=== PATIENT | male | born 1955 | race Caucasian/White ===

== ENCOUNTER 2023-09-02 05:55 | Day surgery (SDC) | payer MEDICARE, BC ==
[2023-08-31 11:51] VITALS: BP 129/87
[~2023-09-02] VITALS: Ht 188 cm; Wt 120.0 kg
[~2023-09-02 05:55] MED LIST: ASPIRIN325 MG PO; FLONASE ALLERG9.9 ML NAS; LACTATED RINGER'S 1,000 ML IV SCH; MELOXICAM15 MG PO; MULTI VITAMIN1 EACH PO; PRILOSEC OTC20 MG PO; ZESTORETIC 10-1 EACH PO
[2023-09-02 06:13] VITALS: BP 117/68
[2023-09-02] MEDS ORDERED: iopamidoL 30 ML VIAL ONE (06:54)
[2023-09-02] MEDS ORDERED: SODIUM CHLORIDE 0.9% 40 ML IV ONE ×2 (06:55→07:21)
[2023-09-02] MEDS ORDERED: HEParin SOD (PORCINE) 5,000 UNIT/0.5 ML SYR SUB-Q SCH (07:00)
[2023-09-02] MEDS ORDERED: CEFAZOLIN SODIUM 2 GM/20 ML SYR IV SCH (07:00)
[2023-09-02] MEDS ORDERED: LIDOCAINE HCL 1% 5 ML SDV INJ ONE (07:00)
[2023-09-02] MEDS ORDERED: IBLOOD GLUCOSE TEST STRIP 1 EA TEST VI PRN ×2 (07:00→07:30)
[2023-09-02] MEDS ORDERED: LIDOCAINE HCL 2% 5 ML SDV ONE ×2 (07:21→09:07)
[2023-09-02] MEDS ORDERED: ondansetron HCL 4 MG/2 ML VIAL ONE (07:21)
[2023-09-02] MEDS ORDERED: propofoL 200 MG/20 ML VIAL ONE (07:21)
[2023-09-02] MEDS ORDERED: dexmedeTOMIDine HCl 200 MCG/2 ML VIAL ONE (07:21)
[2023-09-02] MEDS ORDERED: MAGNESIUM SULFATE 1 GM/2 ML VIAL ONE ×2 (07:21→09:18)
[2023-09-02] MEDS ORDERED: fentaNYL citrate 100 MCG/2 ML VIAL ONE (07:21)
[2023-09-02] MEDS ORDERED: ACETAMINOPHEN 1,000 MG/100 ML VIAL ONE (07:21)
[2023-09-02] MEDS ORDERED: DEXAMETHASONE SOD PHOS 4 MG/ML VIAL ONE (07:21)
[2023-09-02] MEDS ORDERED: KETAMINE in NS 50 MG/5 ML SYR ONE (07:21)
[2023-09-02] MEDS ORDERED: ROCURONIUM BROMIDE 50 MG/5 ML SYR ONE ×2 (07:21→08:25)
[2023-09-02] MEDS ORDERED: ondansetron HCL 4 MG/2 ML VIAL IV PRN (07:30)
[2023-09-02] MEDS ORDERED: NALOXONE HCL 0.4 MG SYR IV PRN (07:30)
[2023-09-02] MEDS ORDERED: SEVOFLURANE 250 ML BTL ONE (07:30)
[2023-09-02] MEDS ORDERED: HYDROmorphone HCL 1 MG/ML SYR IV PRN (07:30)
[2023-09-02] MEDS ORDERED: fentaNYL citrate 100 MCG/2 ML VIAL IV PRN (07:30)
[2023-09-02] MEDS ORDERED: ePHEDrine sulfate 50 MG/ML AMP ONE (09:05)
[2023-09-02] MEDS ORDERED: SODIUM CHLORIDE 0.9% 20 ML IV ONE (09:07)
[2023-09-02] MEDS ORDERED: SUGAMMADEX SODIUM 200 MG/2 ML ML ONE (09:32)
[2023-09-02] MEDS ORDERED: IBUPROFEN600 MG PO (11:05)
[2023-09-02] MEDS ORDERED: OXYCODON-ACETA1 EAC2 PO (11:06)
[2023-09-02] MEDS ORDERED: ACETAMINOPHEN500 MG PO (11:06)
[2023-09-02] MEDS ORDERED: AUGMENTIN 500-1 EACH PO (11:07)
[2023-09-02] MEDS ORDERED: IBUPROFEN 600 MG TAB PO PRN (11:15)
[2023-09-02] MEDS ORDERED: ACETAMINOPHEN 500 MG TAB PO PRN (11:15)
[2023-09-02] MEDS ORDERED: LACTATED RINGER'S 1,000 ML IV SCH (11:15)
[2023-09-02] MEDS ORDERED: OXYCODONE/APAP 7.5/325 TAB PO PRN (11:15)
[2023-09-02] MEDS ORDERED: KETOROLAC TROMETHAMINE 30 MG/ML VIAL IV ONE (11:15)
[2023-09-02] MEDS ORDERED: KETOROLAC TROMETHAMINE 30 MG/ML VIAL ONE (11:16)
[2023-09-02 11:40] VITALS: BP 123/64
--- NOTE | 2023-09-02 11:49 | NUR ---
1140- PT ARRIVES BACK TO DAY SURGERY, DROWSY. PT REPORTS HAVING "TOLERABLE PAIN" RATES IT A 4/10, DENIES NAUSEA. RESP EVEN AND UNLABORED. OXYGEN SAT LOW 90'S ON RA. PT'S CPAP BROUGHT BACK INTO THE ROOM. PT HAS NOT HAD TO USE THE CPAP IN PACU. PT PROVIDED WATER, CRACKERS, AND APPLE SAUCE PER HIS REQUEST. PT'S FAMILY AT THE BEDSIDE. BED IN THE LOWEST POSITION, BED RAIL UP X1, CALL LIGHT PROVIDED.
[2023-09-02] MEDS ORDERED: AMOXICILLIN/CLAVULANATE K 500 MG TAB PO SCH (12:00)
[2023-09-02 12:29] VITALS: BP 134/66
--- NOTE | 2023-09-02 12:40 | NUR ---
1230 PT REQUESTED PAIN MEDICATION FOR 4/10 PAIN. 1235 VITALS TAKEN, PT GIVEN PAIN MEDICATION, SEE EMAR. PT HAS SNACKS AND WATER AT BEDSIDE. PT TOLERATING PO SNACKS AND WATER WELL, NO NAUSEA. PT AT BEDSIDE.
[2023-09-02 13:35] VITALS: BP 117/64
--- NOTE | 2023-09-02 13:40 | NUR ---
1330 PT REPORTED 6/10 PAIN IN RIGHT SHOULDER. PROVIDED PT HEATING PAD FOR SHOULDER AND INSTRUCTED THAT MASSAGE AND MOVING ARM MAY HELP. 1335 VITALS TAKEN, PT HAS SNACKS AND WATER AT BEDSIDE. PT AT BEDSIDE. NO FURTHER REQUESTS AT THIS TIME.
[2023-09-02 14:20] VITALS: BP 130/64
--- NOTE | 2023-09-02 15:06 | NUR ---
1410 PT WAS ABLE TO AMBULATE TO THE BATHROOM. VOIDED 200 MLS. PT HAD SOME DRAINAGE SEROSANGIOUS FROM THOM DRAIN SITE UPON AMBULATION. 1420 VITALS TAKEN. PAIN REASSESSED AFTER PAIN MEDICATION AND HEATING PAD APPLIED. PAIN REDUCED TO 4/10 TOLERABLE LEVEL OF PAIN. 1425 DISCHARGE INFORMATION GONE OVER. PRESCRIPTION GIVEN TO PT. THOM DRAIN EDUCATION GIVEN, AND DEMONSTRATION OF STRIPPING THOM LINE AND EMPTYING. STERI STRIPS REINFORCED TO UMBILICUS LAP SITE. TEACHING DONE WITH AT BEDSIDE. 1450 IV DISCONTINUED. 1455 PT DISCHARGED FROM DAY SURGERY VIA WHEELCHAIR TO FRONT OF [facility] INTO 'S CAR.
--- NOTE | 2023-09-02 15:50 | NUR ---
09/02/23 1550 AndrewJyotiChristi Wojciech 1044- PT ARRIVES TO PACU, SEMI TO HIGH DE GUZMAN POSITION. NON REACTIVE TO STIMULUS AT THIS TIME. BREATHING EVEN AND NON LABORED, O2 AT 8L PER MASK. LR INFUSING TO LFA IV. ALL MONITORS IN PLACE. STERI STRIPS TO 3 LAP SITES, GAUZE AND TAPE TO THOM DRAIN SITE. ABD SOFT, NON DISTENDED. 1050- PT REACTIVE TO VERBAL STIMULI. OPENS EYES AND LOOKING AROUND. REORIENTED TO TIME AND PLACE. PT DOESN'T ANSWER QUESTIONS AT THIS TIME. FALLS ASLEEP INTERMITTENTLY. 1059- PT REPORTS 2/10 PAIN AT THIS TIME, TOLERABLE. MOVED TO ROOM AIR, WILL CONTINUE TO MONITOR. PT IS COUGHING UP AND CLEARING SMALL AMOUNTS OF PHLEGM FROM THROAT. EDUCATED ON SPLINTING ABD WITH PILLOW. 1105- PT REPORTING PAIN IS STARTING TO INCREASE, BUT IT IS TOLERABLE. DR TORRES AT BEDSIDE, ORDERS FOR TORADOL RECEIVED. 1124- REASSESSED DRESSINGS AND NOTED RLQ DRESSING AT THE THOM DRAIN SITE TO BE SATURATED. NOTIFIED DR TORRES, ORDERS TO CHANGE DRESSING. THOM DRAIN IS COMPRESSED, STRIPPED THE LINE, AND PLACED NEW GAUZE AND TAPE TO SITE. 1140- PT RESTING INTERMITTENTLY. WAKES EASILY TO VERBAL STIMULI. REPORTS PAIN IS 4/10 AND TOLERABLE. DENIES NAUSEA. PT TAKEN BACK TO DAY SURGERY VIA BED, LR CONTINUES TO INFUSE. PT ON ROOM AIR AND TOLERATING WELL. ABD SOFT, DRESSINGS ASSESSED WITH MEIR AYALA AT BEDSIDE. FAMILY AT BEDSIDE, REPORT TO MEIR AYALA AT BEDSIDE, CARE OF PT TURNED OVER AT THIS TIME.
--- NOTE | 2023-09-02 22:49 | EKG ---
[facility] [address] [facility] [place] [address] Signed Normal sinus rhythm Normal ECG No previous ECGs available Confirmed by Cedric Veliz MD () on 09/02/2023 10:49:21 PM Electronically Signed By: CEDRIC VELIZ MD 09/02/23 2249 PATIENT NAME: CHAN CASTELAN Electrocardiogram DATE OF : 57 PHYSICIAN: CEDRIC VELIZ MD REPORT #: [id number] REPORT IS CONFIDENTIAL AND NOT TO BE RELEASED WITHOUT AUTHORIZATION
--- NOTE | 2023-09-06 17:06 | PATH ---
[facility] [address] [facility] [place] [place] [address] Signed SPECIMEN(S): A GALLBLADDER WITH STONES SPECIMEN SOURCE: A. GALLBLADDER WITH STONES CLINICAL HISTORY: Chronic cholecystitis FINAL PATHOLOGIC DIAGNOSIS: Gallbladder with stones: - Acute and chronic calculous cholecystitis with diffuse mucosal and gallbladder wall necrosis. JVR:alecia MICROSCOPIC EXAMINATION: Histologic sections of all submitted blocks are examined by light microscopy. These findings, together with the gross examination, support the pathologic diagnosis. GROSS DESCRIPTION: The specimen, labeled and designated "Thierno, gallbladder with stones," is received in formalin and consists of Specimen: Previously opened/disrupted and received in three fragmented portions of gallbladder. Dimensions: 2.8 x 1.5 x 1.2, and 3.2 x 1.4 x 0.8, and 7.5 x 3.5 x 1.3 cm. Serosa: Red-brown and roughened. Cystic Duct: Obstructed by calculi, margin inked black and shaved. Calculi: Multiple fragments of yellow-james irregularly shaped calculi (5.0 x 2.0 x 0.7 cm in aggregate). Mucosa: Red-brown to green-james with some yellow flecking. Wall thickness: 0.3-0.7 cm. Lymph node: No pericystic lymph nodes are grossly identified. Additional: None. Upholstery Estimator sections are submitted in (A1). VB (under the direct supervision of a pathologist) The Gross Description was prepared using a voice recognition system. The report was reviewed for accuracy; however, sound-alike word errors, addition and/or deletions may occur. If there is any question about this report, please contact Client Services. PATIENT NAME: CHAN CASTELAN PATHOLOGY DATE OF : 57 REPORT #: [id number] PHYSICIAN: YARIEL LOW PCP: RANJIT DELACRUZ MD REPORT IS CONFIDENTIAL AND NOT TO BE RELEASED WITHOUT AUTHORIZATION [facility] [address] [facility] [place] [place] [address] Signed PERFORMING LABORATORY: Technical component was performed by [facility], [address] [place] [id number] (CLIA# [id number]). Professional interpretation was performed by [facility] - [facility], [address] [place] [id number] (CLIA#: [id number]). Diagnostician: Narayan Myers MD Pathologist Electronically Signed 09/06/2023 Copies: ~ PATIENT NAME: CHAN CASTELAN PATHOLOGY DATE OF : 57 REPORT #: [id number] PHYSICIAN: YARIEL LOW PCP: RANJIT DELACRUZ MD REPORT IS CONFIDENTIAL AND NOT TO BE RELEASED WITHOUT AUTHORIZATION
--- NOTE | 2023-09-10 07:47 | OR ---
[facility] [address] [place], [place] [address] Signed DATE OF OPERATION: 09/02/2023 SURGEON: Riky Torres MD PREOPERATIVE DIAGNOSES: 1. Chronic cholecystitis; positive HIDA scan. 2. Obesity. POSTOPERATIVE DIAGNOSES: Severe advanced chronic and subacute cholecystitis with multiple gallstones and obstructed cystic duct. PROCEDURES: 1. Laparoscopic cholecystectomy with intraoperative cholangiogram including extensive lysis of adhesions, prolonged, complicated, difficult (surgery 8 a.m. to 10:30 a.m.). 2. Surgeon-directed fluoroscopy. ANESTHESIA: General endotracheal, Wilton Gambino, ELECTRIC METER REPAIRER and local 10 mL of 0.25% Marcaine with epinephrine. INDICATION: This 68-year-old white man is from [place], [place]. He is a patient of Dr. Ranjit Delacruz of [place]. He has had longstanding and worsening complaints of upper abdominal pain in a bandlike configuration. He presented to the emergency room in [place], [place] on August [address] scan was performed as well as blood work. The CT scan did not identify an abnormality with the gallbladder specifically. Interpretation described no "gallstones and no biliary tract ductal dilatation." No mention was made of the gallbladder proper however. He subsequently underwent an intended CCK HIDA test which was converted to a HIDA test without CCK stimulation as there was no filling of the gallbladder. This is of course consistent with acute cholecystitis. He has been markedly bothered by certain foods that he has eaten and has been avoiding them. I ultimately was able to review the CT scan itself which did confirm a gallbladder was present, which did not look distended or contracted or anything of that sort. The liver had fatty infiltration. He is admitted at this time to undergo cholecystectomy preferred by laparoscopic approach. He understands the risk of bleeding, infection, bile duct injury, need for open procedure and other unforeseen complications. Understanding this, he wished to proceed. Electronically Signed By: RIKY TORRES MD 09/10/23 0747 PATIENT NAME: CHAN CASTELAN OPERATIVE REPORT DATE OF : 57 REPORT #: [id number] PHYSICIAN: RIKY TORRES MD PCP: RANJIT DELACRUZ MD REPORT IS CONFIDENTIAL AND NOT TO BE RELEASED WITHOUT AUTHORIZATION [facility] [address] [place], [place] [address] Signed FINDINGS: Profound inflammatory changes were noted in the right upper abdomen. Adhesions to the hepatic flexure of the colon and right colon to the abdominal wall were noted, likely secondary to chronic recurrent acute cholecystitis. Dense omental adhesions to the gallbladder were noted and it was challenging indeed to free them up to allow evaluation of the gallbladder itself. The gallbladder in the upper one-third was markedly contracted and chronically inflamed. The lower part chronically inflamed, but with good delineation of the anatomy ultimately. Cholangiogram was performed showing no sign of filling defect within the biliary tree. There was an obstructing stone within the cystic duct itself which was extracted. During the course of dissection, spillage of stones was noted. Meticulous care was taken to retrieve them all. A drain was left in situ given the extent of dissection. The stomach and duodenum were normal. Multiple soft variably sized yellow gallstones were noted within the gallbladder and there was no evidence of malignancy of the mucosa of the gallbladder. Operation was very prolonged, complicated and difficult lasting from approximately 8 a.m. to 10:30 a.m. far longer than usual. PROCEDURE IN DETAIL: The patient was brought to the operating room, given a general endotracheal anesthetic. Preoperative antibiotic of Ancef was given. Sequential compression device stockings were used and heparin was subcutaneously administered. The abdomen was clipped and prepared with chlorhexidine solution and draped sterilely. Palpation of the abdomen had revealed no sign of palpable mass, ascites or other abnormality. The infraumbilical incision was made and using an open Carie cannula technique pneumoperitoneum was achieved to a level of 14 mmHg of carbon dioxide gas. Intra-abdominal inspection showed no sign of ascites or carcinomatosis. The gallbladder was completely nonvisualized due to dense omental adhesions on the undersurface of right lobe of the liver. Additionally noted were adhesions of the upper portion of the right colon to the abdominal wall indicative of chronic inflammatory process there. Three additional trocars were placed in usual configuration in the subxiphoid, right midclavicular, and right anterior axillary line. The omental adhesions were quite densely adherent to the apex of the gallbladder, which was not visualized in any way. With meticulous care, the adhesions were freed from the inferior surface of the right lobe of the liver, ultimately revealing a small portion of the gallbladder. It was difficult to grasp it as it was extremely dense and not easily identified. With persistent effort, ultimately the medial edge of the gallbladder and the apex could be identified and although quite rubbery and difficult to grasp, ultimately it was and some elevation was possible. Great care was taken to free the omentum from the undersurface of the gallbladder and avoid the hepatic flexure of the colon itself. This was ultimately accomplished allowing for better director trust on the gallbladder and elevated it Electronically Signed By: RIKY TORRES MD 09/10/23 0747 PATIENT NAME: CHAN CASTELAN OPERATIVE REPORT DATE OF : 57 REPORT #: [id number] PHYSICIAN: RIKY TORRES MD PCP: RANJIT DELACRUZ MD REPORT IS CONFIDENTIAL AND NOT TO BE RELEASED WITHOUT AUTHORIZATION [facility] [address] [place], [place] [address] Signed cephalad. There were dense adhesions to the infundibulum as well. These were taken down with blunt electrocautery dissection with a hook dissector with meticulous care made to avoid injury to the second portion of the duodenum. This allowed for better elevation of the gallbladder. The infundibulum was grasped and found to be firm and likely holding multiple gallstones. Ultimately the triangle of Calot was dissected free, staying close to the gallbladder wall. The window between the cystic duct and the gallbladder plate was well defined and ultimately a clip applied across gallbladder cystic duct junction. A transverse choledochotomy was made in the cystic duct. There was no egress of bile at that time. Milking of the cystic duct revealed no sign of stone. Several attempts with an Valdes type cholangiocatheter for cholangiography were undertaken showing poor flow into the cystic duct each time replacing it. Additional manipulation of the cystic duct including a bit more dissection medially allowed for a more effective milking of the duct ultimately extracting a cystic duct stone. Cholangiogram after this point was far more easy and although there had been some spillage of contrast. Good visualization of the biliary tree was noted with free flow of contrast in the duodenum. No evidence of filling defect there. No sign of ductal dilatation or other abnormality. The catheter was removed and the cystic duct was triply clipped with all due care. The gallbladder cystic duct was transected in a retrograde dissection undertaken. The gallbladder was dissected away from dense scarring to the liver identifying a few subvesical small bleeders which were secured with clips and electrocautery. The apex of the gallbladder in the upper third was densely contracted and adherent to the liver bed itself. A rent was made in the gallbladder, which did result in stone spillage many at that time, which were grasped and withdrawn with a gallbladder stone communications tower climber. Ultimately, the back wall of the gallbladder in the upper one-third was left in situ. Gallbladder and its contents were placed in an endobag and extracted through the infraumbilical port site. The gallbladder was opened on the back table and found no sign of neoplasm. Great efforts were then made for gathering of spilled stones, some small, some larger. Irrigation was undertaken as appropriate as well. Once all the stones were completely removed with all due care reinspection of the liver bed undertaken. The upper apex that had adherent gallbladder wall posteriorly was able to be dissected free ultimately removing it. A complete cholecystectomy has been accomplished. Irrigation was undertaken more fully and any stone debris suctioned free. Bertha hemostatic powder was insufflated to the liver bed. There was no ongoing bleeding at that point. Through right-sided trocar site, a 7 mm flat Gregory drain was insinuated in the subhepatic space considering the extent of dissection. There was no sign of bleeding or other problems. Photographs were taken throughout the procedure. The drain was secured to the abdominal wall with 2-0 nylon suture. Electronically Signed By: RIKY TORRES MD 09/10/23 0747 PATIENT NAME: CHAN CASTELAN OPERATIVE REPORT DATE OF : 57 REPORT #: [id number] PHYSICIAN: RIKY TORRES MD PCP: RANJIT DELACRUZ MD REPORT IS CONFIDENTIAL AND NOT TO BE RELEASED WITHOUT AUTHORIZATION [address] [address] Signed The trocars were removed showing no sign of bleeding. The infraumbilical fascial incision was reapproximated with interrupted 0 Vicryl suture. Given his relatively thin upper abdominal wall, the epigastric port was similarly closed. The skin was then closed with interrupted 3-0 Vicryl after application of 10 mL of 0.25% Marcaine with epinephrine. Steri-Strips were ultimately applied. The patient was ultimately extubated and transferred to the recovery room in good condition having suffered no complications. Sponge, needle, and counts reported as correct x3. The operation was quite prolonged, complicated and difficult on the basis of dense adhesions, chronic inflammatory adhesions and inflammation, but was accomplished safely. MD MARY Roque/GEOFFL /[id number] cc: Dr. Ranjit Delacruz [place], [place] Copies: ~ Electronically Signed By: RIKY TORRES MD 09/10/23 0747 PATIENT NAME: CHAN CASTELAN OPERATIVE REPORT DATE OF : 57 REPORT #: [id number] PHYSICIAN: RIKY TORRES MD PCP: RANJIT DELACRUZ MD REPORT IS CONFIDENTIAL AND NOT TO BE RELEASED WITHOUT AUTHORIZATION
== END 2023-09-02 14:53 | disposition home or self-care (01) ==
LOC: DS 05:55
PROVIDERS: ATTEND Surgery
PROC: 0DNU4ZZ Release Omentum, Percutaneous Endoscopic Approach (ICD-10-PCS; 2023-09-02)
PROC: 0FT44ZZ Resection of Gallbladder, Percutaneous Endoscopic Approach (ICD-10-PCS; principal; 2023-09-02 07:30)
DX: K80.12 Calculus of gallbladder with acute and chronic cholecystitis without obstruction (principal); K66.0 Peritoneal adhesions (postprocedural) (postinfection); I10 Essential (primary) hypertension; K21.00 Gastro-esophageal reflux disease with esophagitis, without bleeding; R14.0 Abdominal distension (gaseous); Z96.643 Presence of artificial hip joint, bilateral; Z86.718 Personal history of other venous thrombosis and embolism; Z79.82 Long term (current) use of aspirin; Z79.899 Other long term (current) drug therapy; G47.30 Sleep apnea, unspecified
CPT/HCPCS: 00790; 74300; 88304; 93005; 93010; J0131; J0690; J1100; J1644; J1885; J2001; J2405; J2704; J3010; J3475; J3490; J7121; Q9967